=== PATIENT | female | born 1955 ===

== ENCOUNTER 2016-12-09 22:07 | Inpatient (IN) | payer MEDICAID, OTHER ==
[2016-12-09 23:48] LABS: BASO # 0.1 K/uL (0.0-0.2); BASO % 0.9 % (0.0-2.0); EOS # 0.4 K/uL (0.0-0.7); HEMATOCRIT 38.1 % (34.0-47.0); LYMPH # 4.7 K/uL (1.0-4.3); LYMPH % 47.7 % (20.0-40.0); MEAN CELL VOLUME 93.5 fl (81.0-99.0); MEAN CORPUSCULAR HEMOGLOBIN 31.2 pg (27.0-31.0); MEAN CORPUSCULAR HGB CONC 33.4 g/dL (33.0-37.0); MEAN PLATELET VOLUME 8.8 fl (7.2-11.7); MONO # 0.6 K/uL (0.0-0.8); MONO % 6.3 % (0.0-10.0); NEUT # 4.1 K/uL (1.8-7.0); NEUT % 41.1 % (50.0-75.0); RED CELL DISTRIBUTION WIDTH 13.6 % (11.5-14.5); WHITE BLOOD COUNT 9.8 K/uL (4.8-10.8)
[2016-12-10 00:02] LABS: ALB/GLOB RATIO 1.3 (1.0-2.1); ALKALINE PHOSPHATASE 98 U/L (38-126); ALT/SGPT 47 U/L (9-52); AST/SGOT 30 U/L (14-36); BILIRUBIN,TOTAL 0.6 mg/dl (0.2-1.3); BLOOD UREA NITROGEN 15 mg/dl (7-17); CALCIUM 8.9 mg/dL (8.4-10.2); CARBON DIOXIDE 26 mmol/L (22-30); CHLORIDE 105 mmol/L (98-107); GFR AFRICAN-AMERICAN > 60; GLUCOSE,RANDOM 99 mg/dL (65-105); MAGNESIUM 2.1 MG/DL (1.6-2.3); PHOSPHOROUS 4.2 mg/dl (2.5-4.5); POTASSIUM 4.1 MMOL/L (3.6-5.0); SODIUM 141 mmol/l (132-148); TOTAL PROTEIN 7.7 G/DL (6.3-8.2)
--- NOTE | 2016-12-10 00:06 | ED PDOC ---
HPI: SOB/CHF/COPD Time Seen by Provider: 12/09/16 22:17 Chief Complaint (Nursing): Shortness Of Breath Chief Complaint (Provider): SOB, leg swelling History Per: Patient History/Exam Limitations: no limitations Onset/Duration Of Symptoms: Days (2) Current Symptoms Are (Timing): Still Present Additional Complaint(s): 61yo female with PMHx including asthma presents to the ED with c/o SOB and leg swelling x 2 days worsening since onset with associated chest pressure. Patient reports using her albuterol pump with minimal relief. Denies hx of leg swelling in the past, cough, or fever. Past Medical History Reviewed: Historical Data, Nursing Documentation, Vital Signs Vital Signs: Last Vital Signs Temp 97.5 F L 12/09/16 22:09 Pulse 85 12/09/16 22:09 Resp 20 12/09/16 22:09 BP 131/80 12/09/16 22:09 Pulse Ox 98 12/09/16 22:09 - Medical History PMH: Asthma Denies: Chronic Kidney Disease - Surgical History Surgical History: Hernia Repair, - Family History Family History: States: Unknown Family Hx - Social History Current smoker - smoking cessation education provided: No - Home Medications Home Medications: Ambulatory Orders Medication Instructions Recorded Albuterol HFA [Ventolin HFA 90 2 puff IH [id number] PRN #1 in 12/05/15 mcg/actuation (8 g)] Naproxen 375 mg PO Q8 PRN #21 tab 12/05/15 Prednisone 3 tab PO DAILY #12 tablet 12/05/15 Albuterol HFA [Ventolin HFA 90 2 puff IH Q4 PRN #1 inh 02/07/16 mcg/actuation (8 g)] Fluticasone/Salmeterol 500/50 1 puff IH Q12 #1 inh 02/07/16 [Advair Diskus] Prednisone 60 mg PO DAILY 4 Days 02/07/16 - Allergies Allergies/Adverse Reactions: Allergies Allergy/AdvReac Type Severity Reaction Status Date / Time No Known Allergies Allergy Verified 12/05/15 17:33 Review of Systems ROS Statement: Except As Marked, All Systems Reviewed And Found Negative Constitutional: Negative for: Fever Cardiovascular: Positive for: Edema (leg ), Other (chest pressure ) Respiratory: Positive for: Shortness of Breath. Negative for: Cough Physical Exam - Reviewed Nursing Documentation Reviewed: Yes Vital Signs Reviewed: Yes - Physical Exam Appears: Positive for: Well, In Acute Distress (mild respiratory ) Head Exam: Positive for: ATRAUMATIC, NORMAL INSPECTION, NORMOCEPHALIC Skin: Positive for: Warm, Dry, Pallor Eye Exam: Positive for: Normal appearance, EOMI, PERRL ENT: Positive for: Normal ENT Inspection Neck: Positive for: Normal, Painless ROM, Supple Cardiovascular/Chest: Positive for: Regular Rate, Rhythm. Negative for: Murmur , Tachycardia Respiratory: Positive for: Rales (at bases b/l ), Respiratory Distress (mild ), Other (poor air movement ). Negative for: Accessory Muscle Use, Wheezing Gastrointestinal/Abdominal: Positive for: Soft, Other (obese ). Negative for: Tenderness, Mass, Distended, Guarding, Rebound Back: Positive for: Normal Inspection. Negative for: L CVA Tenderness, R CVA Tenderness Extremity: Positive for: Normal ROM, Swelling (1+ pitting edema BLE ). Negative for: Deformity Neurologic/Psych: Positive for: Alert, Oriented - Laboratory Results Result Diagrams: 12/09/16 23:44 - ECG O2 Sat by Pulse Oximetry: 98 Pulse Ox Interpretation: Normal (RA) Medical Decision Making Medical Decision Makin: Impression: SOB, leg edema DDx: CHF vs. COPD vs. PE vs. DVT vs. ACS Plan: Labs EKG CXR IVF reassess Scribe Attestation: Documented by Pedro Jackson acting as a scribe for Jo Eduardo MD. Provider Scribe Attestation: All medical record entries made by the Scribe were at my direction and personally dictated by me. I have reviewed the chart and agree that the record accurately reflects my personal performance of the history, physical exam, medical decision making, and the department course for this patient. I have also personally directed, reviewed, and agree with the discharge instructions and disposition.
[2016-12-10 00:11] LABS: PARTIAL THROMBOPLASTIN TIME 30.4 Seconds (25.6-37.1)
[2016-12-10 00:31] LABS: THYROID STIMULATING HORMONE 2.85 mIU/ML (0.46-4.68)
[2016-12-10] MEDS ORDERED: Albuterol HFA 90 mcg/actuation (8 g) IH PRN (06:12)
[2016-12-10 07:34] LABS: HEMATOCRIT 38.6 % (34.0-47.0); MEAN CELL VOLUME 94.3 fl (81.0-99.0); MEAN CORPUSCULAR HEMOGLOBIN 31.1 pg (27.0-31.0); MEAN CORPUSCULAR HGB CONC 32.9 g/dL (33.0-37.0); RED CELL DISTRIBUTION WIDTH 13.7 % (11.5-14.5); WHITE BLOOD COUNT 8.8 K/uL (4.8-10.8)
[2016-12-10 08:45] LABS: THYROID STIMULATING HORMONE 2.8 mIU/ML (0.46-4.68)
--- NOTE | 2016-12-10 10:47 | RAD ---
HISTORY: cp COMPARISON: Chest x-ray performed 12/05/15 TECHNIQUE: Chest, one view. FINDINGS: Examination limited by habitus. LUNGS: No focal consolidation. Please note that chest x-ray has limited sensitivity for the detection of pulmonary masses. PLEURA: No significant pleural effusion identified. No definite pneumothorax . CARDIOVASCULAR: Heart size appears within normal limits. OSSEOUS STRUCTURES: No acute osseous abnormality identified. VISUALIZED UPPER ABDOMEN: Unremarkable. OTHER FINDINGS: None. IMPRESSION: No focal consolidation, significant pleural effusion, or definite pneumothorax identified.
--- NOTE | 2016-12-10 12:11 | CP.PCM.HP ---
History of Present Illness - History of Present Illness History of Present Illness: Patient seen and examined at bedside with attending. 61F p/w SOB and lower extremity swelling but denies any dizziness, chest pain, palpitations. Otherwise, she denies any N/V, sick contacts, fevers, chills, diarrhea, but states her current asthma medication provides incomplete relief. PMD: Dr Carrero PMH: Asthma, Obesity, HLD Present on Admission - Present on Admission Any Indicators Present on Admission: No Review of Systems - Review of Systems All systems: reviewed and no additional remarkable complaints except - Cardiovascular Cardiovascular: Chest Pain - Respiratory Respiratory: absent: Pain on Inspiration Past Patient History - Past Medical History & Family History Past Medical History?: Yes - Past Social History Smoking Status: Never Smoked - CARDIAC Hx Cardiac Disorders: No - PULMONARY Hx Respiratory Disorders: Yes Hx Asthma: Yes - NEUROLOGICAL Hx Neurological Disorder: No - HEENT Hx HEENT Problems: No - RENAL Hx Chronic Kidney Disease: No - ENDOCRINE/METABOLIC Hx Endocrine Disorders: No - HEMATOLOGICAL/ONCOLOGICAL Hx Blood Disorders: No - INTEGUMENTARY Hx Dermatological Problems: No - MUSCULOSKELETAL/RHEUMATOLOGICAL Hx Musculoskeletal Disorders: No Hx Falls: No - GASTROINTESTINAL Hx Gastrointestinal Disorders: No - GENITOURINARY/GYNECOLOGICAL Hx Genitourinary Disorders: No - PSYCHIATRIC Hx Psychophysiologic Disorder: No Hx Substance Use: No - SURGICAL HISTORY Hx Surgeries: Yes Hx Section: Yes Hx Herniorrhaphy: Yes (x 2) Hx Tubal Ligation: Yes - ANESTHESIA Hx Anesthesia: Yes Hx Anesthesia Reactions: No Hx Malignant Hyperthermia: No Has any member of the family had a problem w/ anesthesia?: No Meds Allergies/Adverse Reactions: Allergies Allergy/AdvReac Type Severity Reaction Status Date / Time No Known Allergies Allergy Verified 12/05/15 17:33 Physical Exam - Constitutional Appears: Well, Non-toxic, No Acute Distress - Head Exam Head Exam: ATRAUMATIC, NORMAL INSPECTION - Eye Exam Eye Exam: EOMI, PERRL - ENT Exam ENT Exam: Mucous Membranes Moist, Normal Exam - Neck Exam Neck exam: Positive for: Normal Inspection. Negative for: Lymphadenopathy - Respiratory Exam Respiratory Exam: Clear to Auscultation Bilateral, NORMAL BREATHING PATTERN. absent: Rales, Wheezes - Cardiovascular Exam Cardiovascular Exam: REGULAR RHYTHM. absent: JVD - GI/Abdominal Exam GI & Abdominal Exam: Normal Bowel Sounds, Soft (Obese). absent: Tenderness - Extremities Exam Extremities exam: Positive for: normal capillary refill, pedal pulses present - Neurological Exam Neurological exam: Alert, Oriented x3 - Psychiatric Exam Psychiatric exam: Normal Affect, Normal Mood - Skin Skin Exam: Normal Color, Warm Results - Vital Signs Recent Vital Signs: Last Vital Signs Temp 36.9 C 12/10/16 08:00 Pulse 79 12/10/16 08:00 Resp 18 12/10/16 08:00 BP 121/76 12/10/16 08:00 Pulse Ox 95 12/10/16 08:00 - Labs Result Diagrams: 12/10/16 06:35 12/09/16 23:44 Labs: Laboratory Results - last 24 hr 12/10/16 12/10/16 12/10/16 06:30 06:35 06:35 WBC 8.8 RBC 4.09 Hgb 12.7 Hct 38.6 MCV 94.3 MCH 31.1 H MCHC 32.9 L RDW 13.7 Plt Count 270 Troponin I < 0.0120 Triglycerides 254 H Cholesterol 211 H LDL Cholesterol Direct 88 HDL Cholesterol 36 Total T3 1.28 L TSH 3rd Generation 2.80 Assessment & Plan (1) Chest tightness or pressure Assessment and Plan: Rule out ACS, Troponins negative thus far, symptoms resolved and EKG showing NSR. CXR w/o acute findings. DDx asthma exacerbation vs. ACS - Cardiology Consult (Dr Parnell): Lexiscan, Echocardiography, ASA, Statin - f/u last Troponin - Started Aspirin 81mg, PO, Daily - Started Fenofibrate 145mg, PO, Daily - Awaiting Echo and Lexiscan results - c/w Telemetry Status: Acute (2) DVT prophylaxis Assessment and Plan: Lovenox 40mg, SC, Daily Status: Acute (3) Asthma Assessment and Plan: Asymptomatic on PRN Ventolin. Status: Chronic
--- NOTE | 2016-12-10 12:37 | CP.PCM.CON ---
History of Present Illness - History of Present Illness History of Present Illness: 61 y/o with dyspnea and wheezing for several days. States she has chest tightness when SOB, however no chest pressure. denies cad hx. pt also c/o edema which is slightly increased. No f/c/n/v/d/c, no dizziness, no palp, no orthopnea, pnd or syncope. pt with crd and asthma hx. noted to have dyslipidemia. Review of Systems - Constitutional Constitutional: absent: As Per HPI, Anorexia, Chills, Daytime Sleepiness, Excessive Sweating, Fatigue, Fever, Frequent Falls, Headache, Increased Appetite , Lethargy, Malaise, Night Sweats, Snoring, Sleep Apnea, Weight Gain, Weight Loss, Weakness, Other - EENT Eyes: absent: As Per HPI, Blind Spots, Blurred Vision, Change in Vision, Decreased Night Vision, Diplopia, Discharge, Dry Eye, Exophthalmos, Floaters, Irritation, Itchy Eyes, Loss of Peripheral Vision, Pain, Photophobia, Requires Corrective Lenses, Sees Flashes, Spots in Vision, Tunnel Vision, Other Visual Disturbances, Loss of Vision, Other Ears: absent: As Per HPI, Decreased Hearing, Ear Discharge, Ear Pain, Tinnitus, Abnormal Hearing, Disequilibrium, Dizziness, Other Nose/Mouth/Throat: absent: As Per HPI, Epistaxis, Nasal Congestion, Nasal Discharge, Nasal Obstruction, Nasal Trauma, Nose Pain, Post Nasal Drip, Sinus Pain, Sinus Pressure, Bleeding Gums, Change in Voice, Dental Pain, Dry Mouth, Dysphagia, Halitosis, Hoarsness, Lip Swelling, Mouth Lesions, Mouth Pain, Odynophagia, Sore Throat, Throat Swelling, Tongue Swelling, Facial Pain, Neck Pain, Neck Mass, Other - Cardiovascular Cardiovascular: Dyspnea, Edema, Leg Edema. absent: As Per HPI, Acrocyanosis, Chest Pain, Chest Pain at Rest, Chest Pain with Activity, Claudication, Diaphoresis, Dyspnea on Exertion, Irregular Heart Rhythm, Pain Radiating to Arm/ Neck/Jaw, Leg Ulcers, Lightheadedness, Orthopnea, Palpitations, Paroxysmal Nocturnal Dyspnea, Pedal Edema, Radiating Pain, Rapid Heart Rate, Slow Heart Rate, Syncope, Other - Respiratory Respiratory: Dyspnea, Wheezing. absent: As Per HPI, Cough, Hemoptysis, Dyspnea on Exertion, Snoring, Stridor, Pain on Inspiration, Chest Congestion, Excessive Mucous Production, Change in Mucous Color, Pain with Coughing, Other - Gastrointestinal Gastrointestinal: absent: As Per HPI, Abdominal Pain, Belching, Bloating, Change in Bowel Habits, Change in Stool Character, Coffee Ground Emesis, Constipation, Cramping, Diarrhea, Dyspepsia, Dysphagia, Early Satiety, Excessive Flatus, Fecal Incontinence, Heartburn, Hematemesis, Hematochezia, Loose Stools, Melena, Nausea, Odynophagia, Temesmus, Vomiting, Other - Genitourinary Genitourinary: absent: As Per HPI, Change in Urinary Stream, Difficulty Urinating, Dysuria, Flank Pain, Hematuria, Pyuria, Nocturia, Urinary Incontinence, Urinary Frequency, Urinary Hesitance, Urinary Urgency, Voiding Freq/Small Amts, Freq UTI, Hx Renal/Bladder Calculi, Hx /Renal Surgery, Bladder Distension, Other - Musculoskeletal Musculoskeletal: absent: As Per HPI, Abnormal Gait, Arthralgias, Atrophy, Back Pain, Deformity, Joint Swelling, Limited Range of Motion, Loss of Height, Muscle Cramps, Muscle Weakness, Myalgias, Neck Pain, Numbness, Radiating Pain into Limb, Stiffness, Tingling, Other - Integumentary Integumentary: absent: As Per HPI, Acne, Alopecia, Bleeding Lesions, Change in Hair, Change in Nails, Change in Pigmentation, Changing Lesions, Dry Skin, Erythema, Furuncle, Hirsutism, Lesions, New Lesions, Non-Healing Lesions, Photosensitivity, Pruritus, Rash, Skin Pain, Skin Ulcer, Sores, Striae, Swelling , Unusual Bruising, Wounds, Jaundice, Other - Neurological Neurological: absent: As Per HPI, Abnormal Gait, Abnormal Hearing, Abnormal Movements, Abnormal Speech, Behavioral Changes, Burning Sensations, Confusion, Convulsions, Disequilibrium, Dizziness, Numbness, Focal Weakness, Frequent Falls , Headaches, Lack of Coordination, Loss of Vision, Memory Loss, Paresthesias, Radicular Pain, Restless Legs, Sensory Deficit, Syncope, Tingling, Tremor, Vertigo, Weakness, Other Visual Disturbances, Other - Psychiatric Psychiatric: absent: As Per HPI, Abnormal Sleep Pattern, Anhedonia, Anxiety, Auditory Hallucinations, Behavioral Changes, Change in Appetite, Change in Libido, Confusion, Depression, Difficulty Concentrating, Hallucinations, Homicidal Ideation, Hopelessness, Irritability, Memory Loss, Mood Swings, Panic Attacks, Paranoia, Suicidal Ideation, Visual Hallucinations, Tactile Hallucinations, Other - Endocrine Endocrine: absent: As Per HPI, Change in Body Appearance, Change in Libido, Cold Intolorance, Deepening of Voice, Excessive Sweating, Fatigue, Flushing, Heat Intolorance, Increase in Ring/Shoe/Hat Size, Palpitations, Polydipsia, Polyphagia, Polyuria, Other - Hematologic/Lymphatic Hematologic: absent: As Per HPI, Easy Bleeding, Easy Bruising, Lymphadenopathy, Other Past Patient History - Past Medical History & Family History Past Medical History?: Yes - Past Social History Smoking Status: Never Smoked Alcohol: None Drugs: Denies Domestic Violence: Negative - CARDIAC Hx Cardiac Disorders: No - PULMONARY Hx Respiratory Disorders: Yes Hx Asthma: Yes - NEUROLOGICAL Hx Neurological Disorder: No - HEENT Hx HEENT Problems: No - RENAL Hx Chronic Kidney Disease: No - ENDOCRINE/METABOLIC Hx Endocrine Disorders: No - HEMATOLOGICAL/ONCOLOGICAL Hx Blood Disorders: No - INTEGUMENTARY Hx Dermatological Problems: No - MUSCULOSKELETAL/RHEUMATOLOGICAL Hx Musculoskeletal Disorders: No Hx Falls: No - GASTROINTESTINAL Hx Gastrointestinal Disorders: No - GENITOURINARY/GYNECOLOGICAL Hx Genitourinary Disorders: No - PSYCHIATRIC Hx Psychophysiologic Disorder: No Hx Substance Use: No - SURGICAL HISTORY Hx Surgeries: Yes Hx Section: Yes Hx Herniorrhaphy: Yes (x 2) Hx Tubal Ligation: Yes - ANESTHESIA Hx Anesthesia: Yes Hx Anesthesia Reactions: No Hx Malignant Hyperthermia: No Has any member of the family had a problem w/ anesthesia?: No Meds Allergies/Adverse Reactions: Allergies Allergy/AdvReac Type Severity Reaction Status Date / Time No Known Allergies Allergy Verified 12/05/15 17:33 - Medications Medications: Current Medications Albuterol (Ventolin Hfa 90 Mcg/Actuation (8 G)) 2 puff IH Q4 PRN PRN Reason: Wheezing Physical Exam - Constitutional Appears: Well - Head Exam Head Exam: ATRAUMATIC, NORMAL INSPECTION, NORMOCEPHALIC - Eye Exam Eye Exam: EOMI, Normal appearance, PERRL Pupil Exam: NORMAL ACCOMODATION, PERRL - ENT Exam ENT Exam: Mucous Membranes Moist, Normal Exam - Neck Exam Neck exam: Positive for: Normal Inspection - Respiratory Exam Respiratory Exam: Clear to Auscultation Bilateral, NORMAL BREATHING PATTERN - Cardiovascular Exam Cardiovascular Exam: REGULAR RHYTHM, +S1, +S2 - GI/Abdominal Exam GI & Abdominal Exam: Normal Bowel Sounds, Soft. absent: Tenderness - Rectal Exam Rectal Exam: Deferred - Extremities Exam Extremities exam: Positive for: normal capillary refill, pedal edema, pedal pulses present. Negative for: calf tenderness, full ROM, joint swelling, normal inspection, tenderness Additional comments: skin changes c/w chronic venous stasis - Back Exam Back exam: NORMAL INSPECTION. absent: CVA tenderness (L), CVA tenderness (R), FULL ROM, muscle spasm, paraspinal tenderness, rash noted, tenderness, vertebral tenderness - Neurological Exam Neurological exam: Alert, CN II-XII Intact, Normal Gait, Oriented x3, Reflexes Normal - Skin Skin Exam: Dry, Intact, Normal Color, Warm Results - Vital Signs Recent Vital Signs: Last Vital Signs Temp 98.4 F 12/10/16 08:00 Pulse 79 12/10/16 08:00 Resp 18 12/10/16 08:00 BP 121/76 12/10/16 08:00 Pulse Ox 95 12/10/16 08:00 - Labs Result Diagrams: 12/10/16 06:35 12/09/16 23:44 Labs: Laboratory Results - last 24 hr 12/10/16 12/10/16 12/10/16 06:30 06:35 06:35 WBC 8.8 RBC 4.09 Hgb 12.7 Hct 38.6 MCV 94.3 MCH 31.1 H MCHC 32.9 L RDW 13.7 Plt Count 270 Troponin I < 0.0120 Triglycerides 254 H Cholesterol 211 H LDL Cholesterol Direct 88 HDL Cholesterol 36 Total T3 1.28 L TSH 3rd Generation 2.80 - EKG Data EKG Interpreted by: Myself EKG shows normal: Sinus rhythm Rate: Normal Assessment & Plan (1) Chest tightness or pressure Status: Acute (2) Dyslipidemia Status: Acute (3) Asthma Status: Acute (4) Dyspnea Status: Acute - Assessment and Plan (Free Text) Plan: - asa 81mg - ro mi - lexiscan and echo. pt not wheezing so lexiscan is fine - start statin - continue treatment for asthma - further recommendations to follow. - d/w staff and pt. - 55 min total care time.
[2016-12-10] MEDS: Enoxaparin 40 mg Syringe SC SCH (17:14)
--- NOTE | 2016-12-10 22:01 | CARD ---
APPROVED REPORT EXAM: Two-dimensional and M-mode echocardiogram with Doppler and color Doppler. Other Information Quality : AverageRhythm : NSR INDICATION Peripheral Edema Chest Pain 2D DIMENSIONS IVSd0.66 (0.7-1.1cm)LVDd4.52 (3.9-5.9cm) PWd0.74 (0.7-1.1cm)IVSs0.90 (0.8-1.2cm) LVDs2.99 (2.5-4.0cm)FS (%) 33.7 % PWs0.71 (0.8-1.2cm)LVEF (%)50.0 (>50%) M-Mode DIMENSIONS Left Atrium (MM)3.00 (2.5-4.0cm)IVSd0.82 (0.7-1.1cm) Aortic Root2.74 (2.2-3.7cm)LVDd5.24 (4.0-5.6cm) Aortic Cusp Exc.1.47 (1.5-2.0cm)PWd0.91 (0.7-1.1cm) IVSs1.18 cmFS (%) 37 % LVDs3.29 (2.0-3.8cm)PWs1.41 cm Mitral Valve MV E Ocjaiiui83.3cm/sMV DECEL [id number] A Zswnjpoe36.8cm/s MV ATK50rzS/A ratio1.3MVA (PHT)3.10cm2 TDI Lateral E' Peak V11.08cm/sMedial E' Peak V10.43cm/sE/Lateral E'7.2 E/Medial E'7.7 Tricuspid Valve TR Peak Fcnhphvm562xp/sRAP [id number] Peak Gr.15mmHg [id number] LEFT VENTRICLE The left ventricle is normal size. There is normal left ventricular wall thickness. Left ventricle systolic function is borderline. There is normal LV segmental wall motion. The left ventricular diastolic function is normal. RIGHT VENTRICLE The right ventricle is normal size. There is normal right ventricular wall thickness. The right ventricular systolic function is normal. ATRIA The left atrium size is normal. The right atrium size is normal. AORTIC VALVE The aortic valve is not well visualized. There is mild aortic regurgitation. There is no aortic valvular stenosis. MITRAL VALVE The mitral valve is mildly thickened. There is no mitral valve stenosis. Mitral regurgitation is trace. TRICUSPID VALVE The tricuspid valve is normal in structure and function. There is no tricuspid valve regurgitation noted. PULMONIC VALVE The pulmonary valve is normal in structure and function. There is no pulmonic valvular regurgitation. GREAT VESSELS The aortic root is normal in size. The IVC is normal in size and collapses >50% with inspiration. PERICARDIAL EFFUSION The pericardium appears normal. <Conclusion> Poor Echo window The left ventricle is normal size. There is normal left ventricular wall thickness. Left ventricle systolic function is borderline. There is mild aortic regurgitation.
--- NOTE | 2016-12-10 23:54 | CARD ---
APPROVED REPORT EKG Measurement Heart [id number] MD [id number] <Conclusion> Normal sinus rhythm Normal ECG
[2016-12-11] MEDS: Enoxaparin 40 mg Syringe SC SCH (08:37)
--- NOTE | 2016-12-11 16:19 | CP.PCM.PN ---
Subjective - Date & Time of Evaluation Date of Evaluation: 12/11/16 Time of Evaluation: 07:00 - Subjective Subjective: Patient seen and examined at bedside with attending. 61F being evaluated for chest pain reports no symptoms at present. Otherwise she is feeling fine, tolerating PO, no SOB. Objective - Vital Signs/Intake and Output Vital Signs (last 24 hours): Temp Pulse Resp BP Pulse Ox 36.8 C 99 H 18 112/67 97 12/11/16 12:20 12/11/16 12:20 12/11/16 12:20 12/11/16 12:20 12/11/16 12:20 - Medications Medications: Current Medications Albuterol (Ventolin Hfa 90 Mcg/Actuation (8 G)) 2 puff IH Q4 PRN PRN Reason: Wheezing Aspirin (Aspirin Chewable) 81 mg PO DAILY [facility] Last Admin: 12/11/16 08:35 Dose: Not Given Budesonide (Pulmicort Respules) 0.25 mg INH RBID KRISTAN Enoxaparin Sodium (Lovenox) 40 mg SC DAILY [facility] PRN Reason: Protocol Stop: 12/19/16 09:01 Last Admin: 12/11/16 08:37 Dose: 40 mg Fenofibrate (Tricor) 145 mg PO DAILY [facility] Last Admin: 12/11/16 08:35 Dose: Not Given - Labs Labs: PT 11.2 Seconds (9.8-13.1) 12/09/16 23:44 INR 1.0 (0.9-1.2) 12/09/16 23:44 APTT 30.4 Seconds (25.6-37.1) 12/09/16 23:44 - Constitutional Appears: Well, Non-toxic, No Acute Distress - Head Exam Head Exam: ATRAUMATIC, NORMAL INSPECTION - Eye Exam Eye Exam: EOMI, PERRL - ENT Exam ENT Exam: Mucous Membranes Moist, Normal Exam - Neck Exam Neck Exam: Normal Inspection. absent: Lymphadenopathy - Respiratory Exam Respiratory Exam: Clear to Ausculation Bilateral, NORMAL BREATHING PATTERN. absent: Wheezes - Cardiovascular Exam Cardiovascular Exam: REGULAR RHYTHM. absent: JVD - GI/Abdominal Exam GI & Abdominal Exam: Soft, Normal Bowel Sounds. absent: Tenderness - Extremities Exam Extremities Exam: Full ROM, Normal Capillary Refill - Neurological Exam Neurological Exam: Alert, Awake, Oriented x3 - Psychiatric Exam Psychiatric exam: Normal Affect, Normal Mood - Skin Skin Exam: Normal Color, Warm Assessment and Plan (1) Chest tightness or pressure Assessment & Plan: Troponins negative, asymptomatic, and EKG showing NSR. Likely asthma-related symptoms - Cardiology Consult (Dr Parnell): Lexiscan- PENDING, Echocardiography- No acute pathology - Started Aspirin 81mg, PO, Daily - Started Fenofibrate 145mg, PO, Daily - Lexiscan- PENDING - c/w Telemetry Status: Acute (2) DVT prophylaxis Assessment & Plan: Lovenox 40mg, SC, Daily Status: Acute (3) Asthma Assessment & Plan: As patient getting incomplete relief with rescue inhaler, will start on Symbicort - Symbicort, BID - Ventolin PRN Status: Chronic
[2016-12-11 17:02] VITALS: BP 117/66; PULSE 89; RESP 16; TEMP 98.4; O2SAT 96
--- NOTE | 2016-12-11 18:26 | CARD ---
APPROVED REPORT Protocol: YOSHI Test Type: Stress Nuclear Medications: ALBUTEROL HFA, NAPROXEN 375MG, PREDNISONE ADVAIR DISKUS Medical History: ASTHMA, OBESITY, HDL Target HR: 161 bpm Resting ECG: normal Resting Heart Rate: 99 bpm Resting Blood Pressure: 122/77mmHg submaximum (85%): 137 bpm TEST SUMMARY [id number]/77.0. [id number]/77.0. PRETESTHYPERV.00:[id number]/77.0. PRETESTWARM-UP02:[id number]/77.0. EXERCISESTAGE 103:[id number]/70.0. EXERCISESTAGE 201:[id number]/80.0. [id number]:[id number]/70.0. POST EXERCISE Reason for Termination: Target heart rate achieved Target HR: No Max HR: 141 bpm 87% of Maximum Predicted HR: 161 bpm Exercise duration: 04:00 min:sec, 2 Stage Exercise capacity: 5.8METs Max Blood Pressure: 200/60mmHg Blood Pressure response to exercise: normal resting BP - exaggerated response Heart Rate response to exercise: appropriate Chest Pain: No, none Angina index: 0 Arrhythmia: Yes, atrial premature beats-isolated ST Change: No, none Deviation: 0 mm EXAM: Myocardial Perfusion REST/STRESS Imaging Protocol The imaging protocol used to acquire images was Rest Tc-99m/stress Tc-99m 1 day Rest Spect myocardial perfusion imaging was performed in supine position 40 minutes following the injection of 10 mCi of Tc-99 Myoview. Time of rest injection: 08:30 Time of rest imagin:10 At peak stress, the patient was injected intravenously with 30mCi of Tc-99 tetrofosmin after an infusion time of minutes and seconds. Time of stress injection: 10:35 Time of stress imagin:15 Gated Stress Spect was performed 40 minutes after intravenous Tc-99 Myoview injection. The images were gated to evaluate regional wall motion and calculate ventricular ejection fraction. NUCLEAR IMAGE INTERPRETATION The rest and stress images show normal perfusion, normal contraction and thickening. LV Perfusion 1 The rest and stress images show normal perfusion. CONCLUSION 1. There are no significant stress EKG changes or ST changes noted. 2. The stress and resting images show normal perfusion. 3. Negative Myoview stress test for ischemia
[2016-12-11] MEDS ORDERED: Budesonide 0.25 mg/2 ml Inhal Susp UD INH SCH (20:00)
== END 2016-12-11 17:34 | disposition left against medical advice (07) | DRG 97 ==
LOC: H.ER 22:07 → H.ERHOLD 12-10 00:27 → H.TEL 12-10 03:09 → OBSVTOIN 12-11 02:52
PROVIDERS: ADMIT Internal Medicine; ATTEND Internal Medicine
DX: J45.909 Unspecified asthma, uncomplicated (principal); E78.5 Hyperlipidemia, unspecified; E66.9 Obesity, unspecified; Z68.37 Body mass index [BMI] 37.0-37.9, adult

== ENCOUNTER 2017-07-11 03:59 | Emergency (ER) | payer OTHER ==
[2017-07-11 04:49] VITALS: TEMP 98
[2017-07-11] MEDS ORDERED: Albuterol-Ipratrop 3 mg / 0.5 (3 ml) UD INH STA (04:55)
[2017-07-11] MEDS ORDERED: Albuterol-Ipratrop 3 mg / 0.5 (3 ml) UD ONE (04:59)
--- NOTE | 2017-07-11 05:04 | ED PDOC ---
HPI: SOB/CHF/COPD Chief Complaint (Provider): SOB and body aches all over History Per: Patient History/Exam Limitations: no limitations Onset/Duration Of Symptoms: Days Current Symptoms Are (Timing): Still Present Current Respiratory Medications: Albuterol Associated Symptoms: denies: Fever, Chills, Chest Pain, Productive Cough Additional History Per: Patient - Risk Factors PE Risk Factors: Neg: Extremity Immobilization/Fx, Decreased Mobilty /Activity, Recent Major Surgery, Recent Hospitalization, Active Cancer, Previous PE <Melvi Corona - Last Filed: 07/11/17 06:36> <Yehuda Leyva - Last Filed: 07/12/17 20:12> Time Seen by Provider: 07/11/17 04:19 Chief Complaint (Nursing): Flu-like Symptoms Additional Complaint(s): 62 yr old F presents to ED with complaint of SOB and congestion x 3 days which worsened today. PMHx includes uncontrolled mild asthma, hypercholesterolemia and obesity. Patient reports she has an Albuterol pump but it doesn't really help. Denies cough, fevers, chills, chest pain, nausea, vomiting, syncope or diarrhea. No other associated symptoms. PMD: Dr. Mark (last visit 05/2017) PMHx: uncontrolled mild asthma, hypercholesterolemia and obesity SurgHx: 2 abdominal hernia repairs, BTL, FMHx: mother at 90 (possibly from cardiac disease) , father at 76 from stomach cancer SocHx: denies tobacco/Etoh or drugs, lives with daughter Medications: Atorvastatin 10mg PO QD, vit D 1000 IU PO QD, Fenofibrate 145mg PO QD, Loratadine 10mg PO QD, Albuterol HFA 90mcg/actuation INH 1-2 puffs PRN SOB Allergies: NKDA (Melvi Corona) Supervising Attending Note - Attestation: I have personally seen and examined this patient.: Yes I have fully participated in the care of the patient.: Yes I have reviewed all pertinent clinical information, including history, physical exam and plan: Yes <Yehuda Leyva - Last Filed: 07/12/17 20:12> Past Medical History - Medical History PMH: Asthma Denies: Chronic Kidney Disease - Surgical History Surgical History: Hernia Repair, - Family History Family History: States: Unknown Family Hx <Melvi Corona - Last Filed: 07/11/17 06:36> <Yehuda Leyva - Last Filed: 07/12/17 20:12> Vital Signs: Last Vital Signs Temp 98.0 F 07/11/17 04:43 Pulse 80 07/11/17 07:00 Resp 15 07/11/17 07:00 BP 145/80 07/11/17 07:00 Pulse Ox 98 07/11/17 07:00 - Home Medications Home Medications: Ambulatory Orders Medication Instructions Recorded Albuterol HFA [Ventolin HFA 90 2 puff IH [id number] PRN #1 in 12/05/15 mcg/actuation (8 g)] Albuterol HFA [Ventolin HFA 90 2 puff IH Q4 PRN #1 inh 02/07/16 mcg/actuation (8 g)] - Allergies Allergies/Adverse Reactions: Allergies Allergy/AdvReac Type Severity Reaction Status Date / Time No Known Allergies Allergy Verified 12/05/15 17:33 Curb-65 Severity Score - CURB-65 Severity Score Confusion: No Bun >19mg/dl (>7mmol/L): No Respiratory Rate greater than/equal to 30: No Systolic BP <90 or Diastolic BP less than/equal 60mmHg: No Age >64: No Curb-65 Score: 0 Percentage 30-day mortality: 0.6% <Melvi Corona - Last Filed: 07/11/17 06:36> Wells Criteria for PE - Wells Criteria for Pulmonary Embolism Clinical Signs and Symptoms of DVT: No P.E is #1 Diagnosis, or Equally Likely: No Heart Rate >100: No Immobilization at least 3 days;Surgery previous 4 weeks: No Previous, objectively diagnosed PE or DVT: No Hemoptysis: No Malignancy w/treatment within 6 months, or palliative: No Total Score: 0 <Melvi Corona - Last Filed: 07/11/17 06:36> Review of Systems Constitutional: Negative for: Fever, Chills ENT: Negative for: Nose Discharge, Nose Congestion Cardiovascular: Negative for: Chest Pain, Palpitations Respiratory: Positive for: Shortness of Breath. Negative for: Cough Gastrointestinal: Negative for: Nausea, Vomiting, Abdominal Pain, Diarrhea Genitourinary Female: Negative for: Dysuria, Frequency Musculoskeletal: Negative for: Neck Pain, Shoulder Pain Skin: Negative for: Rash, Lesions Neurological: Negative for: Weakness, Numbness, Change in Speech, Headache Psych: Negative for: Anxiety, Depression <Melvi Corona - Last Filed: 07/11/17 06:36> Physical Exam - Physical Exam Appears: Positive for: Uncomfortable (SOB) Skin: Positive for: Normal Color, Warm, Dry Eye Exam: Positive for: EOMI, PERRL ENT: Negative for: Pharyngeal Erythema Neck: Positive for: Painless ROM, Supple Cardiovascular/Chest: Positive for: Regular Rate, Rhythm. Negative for: JVD Respiratory: Positive for: Decreased Breath Sounds, Wheezing. Negative for: Rales, Rhonchi Pulses-Carotid (L): 2+ Pulses-Carotid (R): 2+ Pulses-Radial (L): 2+ Pulses-Radial (R): 2+ Gastrointestinal/Abdominal: Positive for: Bowel Sounds, Soft (obese). Negative for: Tenderness Extremity: Positive for: Normal ROM, Pedal Edema (bilateral +2). Negative for: Tenderness, Calf Tenderness Lymphatic: Negative for: Adenopathy Neurologic/Psych: Positive for: Alert, unloader II-XII, Gait (normal). Negative for : Aphasia <Melvi Corona - Last Filed: 07/11/17 06:36> - ECG O2 Sat by Pulse Oximetry: 99 <Melvi Corona - Last Filed: 07/11/17 06:36> Nebulizer Treatments/Peak Flow - Steroid Treatment Steroid: Not Clinically Indicated - Clinical Response Clinical Response: Improved <Melvi Corona - Last Filed: 07/11/17 06:36> Medical Decision Making <Melvi Corona - Last Filed: 07/11/17 06:36> <Yehuda Leyva - Last Filed: 07/12/17 20:12> Medical Decision Making: patient improved s/p 2x duoneb treatments -influenza A/B (Melvi Corona) Disposition - Patient ED Disposition Is Patient to be Admitted: No Counseled Patient/Family Regarding: Need For Followup - Disposition Disposition: Routine/Home Disposition Time: 06:36 - POA Present On Arrival: None <Melvi Corona - Last Filed: 07/11/17 06:36> <Yehuda Leyva - Last Filed: 07/12/17 20:12> - Clinical Impression Clinical Impression: Asthma exacerbation - Disposition Condition: IMPROVED Additional Instructions: follow up with your PMD within 1 week, resume home medications as prescribed Forms: [facility] (Bahraini)
[2017-07-11 06:40] VITALS: BP 145/80; PULSE 80; RESP 15; O2SAT 98
== END 2017-07-11 07:01 | disposition home or self-care (01) ==
LOC: H.ER 03:59
DX: J45.901 Unspecified asthma with (acute) exacerbation (principal); J44.9 Chronic obstructive pulmonary disease, unspecified; E66.9 Obesity, unspecified

== ENCOUNTER 2018-10-20 05:57 | Emergency (ER) | payer SELFPAY ==
[2018-10-20] MEDS ORDERED: Albuterol-Ipratrop 3 mg / 0.5 (3 ml) UD INH STA ×3 (06:31→06:32)
[2018-10-20] MEDS ORDERED: Albuterol-Ipratrop 3 mg / 0.5 (3 ml) UD ONE ×2 (06:36→06:37)
--- NOTE | 2018-10-20 06:37 | ED PDOC ---
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 denies: Cough, Fever Additional Complaint(s): 63 years old female with a history of asthma and high cholesterol presents to ER for evaluation stating she's been suffering from cold. Patient reports this morning her and became upset in which she began to have difficulty breathing. She reports chest tightness and shortness of breath. Patient denies cough and fever. PMD: Mike Mark Past Medical History Reviewed: Historical Data, Nursing Documentation, Vital Signs Vital Signs: Last Vital Signs Temp 98.7 F 10/20/18 06:15 Pulse 87 10/20/18 06:15 Resp 16 10/20/18 06:15 BP 143/81 10/20/18 06:15 Pulse Ox 99 10/20/18 06:15 Primary Care Provider: Mike Mark - Medical History PMH: Asthma, Hypercholesterolemia Denies: Chronic Kidney Disease - Surgical History Surgical History: Hernia Repair, - Family History Family History: States: Unknown Family Hx - Social History Current smoker - smoking cessation education provided: No Alcohol: None Drugs: Denies - Home Medications Home Medications: Ambulatory Orders Medication Instructions Recorded Albuterol HFA [Ventolin HFA 90 2 puff IH [id number] PRN #1 in 12/05/15 mcg/actuation (8 g)] Albuterol HFA [Ventolin HFA 90 2 puff IH Q4 PRN #1 inh 02/07/16 mcg/actuation (8 g)] - Allergies Allergies/Adverse Reactions: Allergies Allergy/AdvReac Type Severity Reaction Status Date / Time No Known Allergies Allergy Verified 12/05/15 17:33 Review of Systems ROS Statement: Except As Marked, All Systems Reviewed And Found Negative Constitutional: Negative for: Fever Cardiovascular: Positive for: Chest Pain (tightness) Respiratory: Positive for: Shortness of Breath. Negative for: Cough Physical Exam - Reviewed Nursing Documentation Reviewed: Yes Vital Signs Reviewed: Yes - Physical Exam Appears: Positive for: No Acute Distress (Anxious appearing) Head Exam: Positive for: ATRAUMATIC, NORMOCEPHALIC Skin: Positive for: Normal Color, Warm, Dry Eye Exam: Positive for: Normal appearance, EOMI, PERRL ENT: Positive for: Normal ENT Inspection Neck: Positive for: Normal, Painless ROM, Supple Cardiovascular/Chest: Positive for: Regular Rate, Rhythm. Negative for: Murmur Respiratory: Positive for: Wheezing (Bilateral). Negative for: Respiratory Distress Gastrointestinal/Abdominal: Positive for: Normal Exam, Soft. Negative for: Tenderness Back: Positive for: Normal Inspection. Negative for: L CVA Tenderness, R CVA Tenderness Extremity: Positive for: Normal ROM. Negative for: Pedal Edema, Deformity Neurological/Psych: Positive for: Awake, Alert, Oriented (x3), Other (Speaking full sentences) - ECG O2 Sat by Pulse Oximetry: 99 (RA) Pulse Ox Interpretation: Normal Medical Decision Making Medical Decision Making: Time: 630 A/P: 63 years old female presents with anxiety induced asthma exacerbation --No acute respiratory distress noted at this time --VBG --BMP --Troponin --CBC --Albuterol --SOLU-Medrol [address] [place], pending reevaluation ScribeAttestation: Documented Barbie Gibbons, acting as a scribe for Yehuda Leyva MD. Provider ScribeAttestation: All medical record entries made by the Scribe were at my direction and personally dictated by me. I have reviewed the chart and agree that the record accurately reflects my personal performance of the history, physical exam, medical decision making, and the department course for this patient. I have also personally directed, reviewed, and agree with the discharge instructions and disposition. Disposition - Clinical Impression Clinical Impression: Anxiety, Asthma - Patient ED Disposition Is Patient to be Admitted: Transfer of Care - Disposition Disposition: Transfer of Care Disposition Time: 07:00 Condition: STABLE Forms: [facility] (Danish) Patient Signed Over To: Therese Birmingham Handoff Comments: pending labs, cxr, re-eval
[2018-10-20 07:08] LABS: BLOOD UREA NITROGEN 13 mg/dl (7-17); CALCIUM 9.4 mg/dL (8.4-10.2); GFR NON-AFRICAN AMERICAN > 60
--- NOTE | 2018-10-20 07:10 | ED PDOC ---
- Laboratory Results Result Diagrams: 10/20/18 06:50 10/20/18 06:50 - ECG O2 Sat by Pulse Oximetry: 99 (RA) Pulse Ox Interpretation: Normal Medical Decision Making Medical Decision Makin Patient signed out to me by Dr. Leyva pending ER assessment, reevaluation. Accession No. : [id number] Patient Name / ID : [place] [facility] / [id number] Exam Date : 10/20/2018 07:27:08 ( Approved ) Study Comment : Sex / Age : F / 63Y Creator : Garret Byers MD Dictator : Garret Byers MD Burnisher : [employer] Lead : Garret Byers MD Approver2 : Report Date : 10/20/2018 08:04:58 My Comment : Date of service: 10/20/2018 HISTORY: asthma, sob COMPARISON: Portable chest 12/09/2016. TECHNIQUE: Chest PA and lateral views FINDINGS: LUNGS: No active pulmonary disease. PLEURA: No significant pleural effusion identified. No pneumothorax apparent. CARDIOVASCULAR: No aortic atherosclerotic calcification present. Normal cardiac size. No pulmonary vascular congestion. OSSEOUS STRUCTURES: No significant abnormalities. VISUALIZED UPPER ABDOMEN: Normal. OTHER FINDINGS: None. IMPRESSION: No interval acute cardiopulmonary disease appreciated. 0900 On reassessment, patient with improvement in shortness of breath Stable for discharge home. ScribeAttestation: Documented byEdith Alberts acting as a scribe for Therese Birmingham MD. Provider ScribeAttestation: All medical record entries made by the Scribe were at my direction and personally dictated by me. I have reviewed the chart and agree that the record accurately reflects my personal performance of the history, physical exam, medical decision making, and the department course for this patient. I have also personally directed, reviewed, and agree with the discharge instructions and disposition. Disposition - Clinical Impression Clinical Impression: Asthma - POA Present On Arrival: None - Disposition Referrals: [facility] [Outside] Disposition: Routine/Home Disposition Time: 09:10 Condition: IMPROVED Prescriptions: Albuterol HFA [Ventolin HFA 90 mcg/actuation (8 g)] 2 puff IH [id number] PRN #1 bottle PRN Reason: Shortness Of Breath Prednisone 50 mg PO DAILY #4 tab Instructions: Asthma in Adults Forms: [facility] (Macedonian) Print Language: EQUATORIAL GUINEAN
[2018-10-20 07:11] LABS: BASO % 0.5 % (0.0-2.0); EOS # 0.2 K/uL (0.0-0.7); EOS % 2.2 % (0.0-4.0); HEMOGLOBIN 13.9 g/dL (12.0-16.0); LYMPH # 2.4 K/uL (1.0-4.3); LYMPH % 25.1 % (20.0-40.0); MEAN CELL VOLUME 93.9 fl (81.0-99.0); MEAN CORPUSCULAR HEMOGLOBIN 31.7 pg (27.0-31.0); MEAN CORPUSCULAR HGB CONC 33.8 g/dL (33.0-37.0); MEAN PLATELET VOLUME 8.9 fl (7.2-11.7); MONO # 0.4 K/uL (0.0-0.8); MONO % 4.6 % (0.0-10.0); NEUT # 6.6 K/uL (1.8-7.0); NEUT % 67.6 % (50.0-75.0); NRBC % 0.1 % (0.0-0.0); RBC 4.38 Mil/uL (3.80-5.20); RED CELL DISTRIBUTION WIDTH 13.4 % (11.5-14.5); WHITE BLOOD COUNT 9.7 K/uL (4.8-10.8)
[2018-10-20 07:19] LABS: VENOUS BLOOD GAS BASE EXCESS 1.2 mmol/L (0.0-2.0); VENOUS BLOOD GAS PCO2 47 mmHg (40-60); VENOUS BLOOD GAS PO2 37 mm/Hg (30-55); VENOUS BLOOD PH 7.37 (7.32-7.43)
--- NOTE | 2018-10-20 08:08 | RAD ---
Date of service: 10/20/2018 HISTORY: asthma, sob COMPARISON: Portable chest 12/09/2016. TECHNIQUE: Chest PA and lateral views FINDINGS: LUNGS: No active pulmonary disease. PLEURA: No significant pleural effusion identified. No pneumothorax apparent. CARDIOVASCULAR: No aortic atherosclerotic calcification present. Normal cardiac size. No pulmonary vascular congestion. OSSEOUS STRUCTURES: No significant abnormalities. VISUALIZED UPPER ABDOMEN: Normal. OTHER FINDINGS: None. IMPRESSION: No interval acute cardiopulmonary disease appreciated.
[2018-10-20 09:16] VITALS: BP 140/77; PULSE 102; RESP 18; TEMP 98.5
[2018-10-20 09:21] VITALS: O2SAT 99
== END 2018-10-20 09:20 | disposition home or self-care (01) ==
LOC: H.ER 05:57
DX: J45.909 Unspecified asthma, uncomplicated (principal); F41.9 Anxiety disorder, unspecified
CPT/HCPCS: 71046; 80048; 82803; 84484; 85025; 94150; 94640; 96374; 99284; J2930